=== PATIENT | male | born 1960 | race Caucasian/White ===

== ENCOUNTER → 2016-11-11 | Outpatient (CLI) | payer OTHER ==
--- NOTE | 2016-11-11 16:28 | US ---
EXAMINATION TYPE: US kidneys/renal and bladder DATE OF EXAM: 11/11/2016 2:28 PM COMPARISON: None CLINICAL HISTORY: 56-year-old male chronic kidney disease, diabetic. TECHNIQUE: Multiple sonographic images of the kidneys and bladder were obtained. FINDINGS: EXAM MEASUREMENTS: Right Kidney: 11.5 x 5.6 x 4.7 cm with mild pelvicaliectasis. Left Kidney: 11.6 x 5.6 x 4.6 cm without hydronephrosis. No gross abnormality of the urine distended bladder. Neither ureteral jet is seen during the course o f the exam. Post Void Residual Volume: 7.3 mL, within normal limits. IMPRESSION: Mild right-sided pelvicaliectasis. No hydronephrosis on the left.
== END | disposition home or self-care (01) ==
LOC: RADUSWWP 14:00
PROVIDERS: ATTEND Family Medicine
DX: N18.3 Chronic kidney disease, stage 3 (moderate) (principal)
CPT/HCPCS: 36415; 76770; 81050; 82575; 84156